=== PATIENT | male | born 2000 | race Caucasian/White ===

== ENCOUNTER 2024-07-07 19:08 | Emergency (ER) | payer OTHER ==
[~2024-07-07] VITALS: Ht 172.7 cm; Wt 67.4 kg
[2024-07-07 20:03] LABS: BASO # 0.1 10^3/uL (0.0-0.2); BASO % 0.5 % (0.0-1.0); EOS # 0.1 10^3/uL (0.0-0.5); EOS % 0.6 % (0.0-3.0); HEMATOCRIT 41.7 % (42.0-52.0); HEMOGLOBIN 14.3 g/dl (13.5-17.5); LYMPH % 9.4 % (24.0-44.0); MEAN CORPUSCULAR HEMOGLOBIN 29.8 pg (27.0-33.0); MEAN CORPUSCULAR HGB CONC 34.3 g/dl (32.0-36.5); MEAN CORPUSCULAR VOLUME 86.9 fl (80.0-96.0); MONO # 1.2 10^3/uL (0.0-0.8); MONO % 10.9 % (2.0-8.0); NEUTROPHILS # 8.7 10^3/uL (1.5-8.5); NEUTROPHILS % 78.2 % (36.0-66.0); PLATELET COUNT, AUTOMATED 300 10^3/uL (150-450); WHITE BLOOD COUNT 11.1 10^3/uL (4.0-10.0)
[2024-07-07] MEDS ORDERED: GNP250TA9 PO (20:20)
[2024-07-07] MEDS ORDERED: ACET-897 PO (20:20)
[2024-07-07 20:29] LABS: ALBUMIN 4.3 G/DL (3.2-5.2); BILIRUBIN,DIRECT 0.2 MG/DL (<0.4); BILIRUBIN,TOTAL 0.5 MG/DL (0.3-1.2); TOTAL PROTEIN 7.7 G/DL (5.7-8.2)
[2024-07-07 20:36] LABS: PROCALCITONIN 0.08 ng/ml
[2024-07-07] MEDS ORDERED: ISOVUE-370 76% 100ML VIAL As Ordered ONE (20:41)
[2024-07-07] MEDS: KETOROLAC 30 MG/ML 1ML VIAL IV ONE (20:54)
[2024-07-07] MEDS: ACETAMINOPHEN 500 MG TAB PO ONE (20:54)
[2024-07-07] MEDS: NS 1,000 ML IV ONE (21:30)
[2024-07-07 23:15] VITALS: BP 119/68; TEMP 98.2; O2SAT 97
[2024-07-07] MEDS ORDERED: AMOX500C PO (23:26)
[2024-07-07] MEDS: AMOXICILLIN 500 MG CAP PO ONE (23:31)
== END 2024-07-07 23:44 | disposition home or self-care (01) ==
LOC: M ED 19:08
DX: B34.8 Other viral infections of unspecified site (principal); R55 Syncope and collapse; J02.9 Acute pharyngitis, unspecified; R00.0 Tachycardia, unspecified; Z79.2 Long term (current) use of antibiotics; Z79.1 Long term (current) use of non-steroidal anti-inflammatories (NSAID); Z79.899 Other long term (current) drug therapy
CPT/HCPCS: 71275; 80047; 80076; 81001; 83605; 83690; 84145; 85025; 87040; 87486; 87581; 87633; 87798; 87880; 93005; 96361; 96374; 99285; J1885; Q9967